=== PATIENT | male | born 1980 | race Caucasian/White ===

== ENCOUNTER 2016-05-31 04:38 | Emergency (ER) | payer MEDICAID ==
[2016-05-31] MEDS ORDERED: ALBUTEROL SULFATE/IPRATROPIUM 3 ML NEBU IH ONE ×2 (04:42→04:46)
[2016-05-31] MEDS ORDERED: METHYLPREDNISOLONE SOD SUCC/PF 125 MG/2 ML VIAL ONE (04:59)
[2016-05-31] MEDS ORDERED: METHYLPREDNISOLONE SOD SUCC/PF 40 MG/ML VIAL IM ONE (05:00)
--- NOTE | 2016-05-31 05:10 | ERNOTE ---
Dyspnea - General Presenting Symptoms: shortness of breath, wheezing Time Seen by Provider: 05/31/16 04:59 Source: patient Exam Limitations: no limitations - Immun/Allergies/Home Medications Immunizations: IMMUNIZATION HX Immunizations Up to Date No History of Influenza Vaccine No Hx Pneumococcal Vaccination No Allergies/Adverse Reactions: Allergies Penicillins Allergy (Verified 04/04/16 13:12) Home Medications: HOME MEDICATIONS Albuterol Sulfate [Albuterol Sulfate 2.5 MG/0.5ML] 1 vial IH Q4H PRN 04/04/16 [ Last Taken Unknown] Albuterol Sulfate [Ventolin HFA] 2 puff IH Q6H #1 inhaler 04/04/16 [Last Taken Unknown] Albuterol Sulfate [Ventolin Hfa] 2 puff IH Q4H PRN 04/04/16 [Last Taken Unknown] Tiotropium Sullivan [Spiriva] 1 cap IH DAILY 04/04/16 [Last Taken Unknown] Azithromycin [Zithromax] 250 mg PO DAILY #6 tablet 05/31/16 [Last Taken Unknown] Methylprednisolone [Medrol Dosepak] 4 mg PO DAILY #21 tab.ds.pk 05/31/16 [Last Taken Unknown] - History of Present Illness Narrative: Pt states he began to have shortness of breath last evening. Throughout the night he continued to get worse. Severity: severe Treatment PREPARATOR: by patient, albuterol - pt states he has taken around 40 nebulized treatments in the past 12 hours. Initiating event: Reports: unknown Frequency of episodes: Reports: frequent episodes, chronic episodes Modifying Factors - (Improves): Reports: oxygen Modifying Factors (Worsens): Reports: activity Associated Symptoms-Dyspnea: Reports: cough, wheezing. Denies: fever/chills, chest pain/discomfort, ankle/leg swelling Prior Treatment: Reports: previous episodes - Pt states he has had multiple ER visits but has never had to be admitted Review of Systems - Review of Systems Constitutional: Present: fatigue. Absent: recent illness EYE: Present: no symptoms reported ENT: Present: no symptoms reported Respiratory: Present: See HPI Cardiology: Absent: chest pain, syncope Gastrointestinal/Abdominal: Absent: nausea, vomiting Genitourinary: Present: no symptoms reported Musculoskeletal: Present: no symptoms reported Skin: Present: no symptoms reported Neurological: Present: no symptoms reported Endocrine: Present: no symptoms reported Hematologic/Lymphatic: Present: no symptoms reported Psych: Present: no symptoms reported - Patient's Past Medical History Patient History - Medical: No pertinent hx Patient History - Cardiac/Respiratory: COPD Patient History - Cancer: No Hx of Cancer Patient History - Surgical Procedures: Ear Tubes - Social History Living Situations: home Smoking Status: Former smoker Have you smoked in the past 12 months: Yes Alcohol Use: none Drug Use: none Physical Exam - Physical Exam General Appearance: Present: wd/wn, alert, moderate distress Eye Exam: Normal inspection: bilateral, PERRL: bilateral Ears, Nose, Throat: Present: normal ENT inspection, hearing grossly normal Neck: Present: normal inspection, nontender Respiratory: Present: expiration (prolonged), wheezing - inspiratory and expiratory, fair air movement Cardiovascular/Chest: Present: tachycardia - distant cardiac sounds Extremity Exam: Present: normal inspection, non-tender Neurological Exam: Present: alert, oriented, normal mood/affect, no motor/ sensory deficits Skin Exam: Present: normal color, warm/dry Lymphatic Exam: Present: no adenopathy ED Progress - Results and Orders Patient's Lab Results:: I have reviewed the patient's lab results. Results and Orders: Laboratory Tests 05/31/16 05:25 WBC 10.5 Hgb 16.5 Hct 52.4 H Plt Count 54 L - Vital Signs Patient's Vital Signs:: I have reviewed the patient's vital signs. Vital Signs: Vital Signs 05/31/16 05/31/16 04:41 04:48 Temperature 34.8 C L Pulse Rate 113 H 113 H Respiratory 26 H 26 H Rate Blood Pressure 159/82 O2 Sat by Pulse 83 L 89 L Oximetry - Progress/Reassessment Chief Complaint: Dyspnea Progress:: Improved - discussed the possibility of admission as his SaO2 remained 87-88 when on RA. Pt does not want to stay but agrees to return if he gets worse Departure Clinical Impression: Acute exacerbation of chronic obstructive airways disease - Departure Disposition: Home Follow Up Needed Condition: Fair Instructions: Chronic Obstructive Pulmonary Disease Exacerbation, [id number] Additional Instructions: See your pulmonary doctor if not improving Prescriptions: Azithromycin [Zithromax] 250 mg PO DAILY #6 tablet Methylprednisolone [Medrol Dosepak] 4 mg PO DAILY #21 tab.ds.pk
[2016-05-31 05:40] LABS: Hematocrit 52.4 % (42.0-52.0); Hemoglobin 16.5 gm/dL (13.5-18.0); Mean Cell Volume 96.7 fl (78-100); Mean Corpuscular Hemoglobin 30.4 pg (27-31); Mean Corpuscular Hgb Conc 31.5 g/dl (32-36); Mean Platelet Volume 9.8 fl (6.0-9.5); Platelet Count 54 K/mm3 (150-450); Red Blood Count 5.42 M/mm3 (4.7-6.0); Red Cell Distribution Width 15.1 % (11.5-14.0); White Blood Count 10.5 K/mm3 (4.0-10.5)
[2016-05-31 05:50] LABS: Total Cells Counted 100
[2016-05-31] MEDS ORDERED: ACETAMINOPHEN 500 MG TABLET PO ONE (05:52)
[2016-05-31 05:57] LABS: Eosinophil 4 % (0-3); Lymphocyte 37 % (20-51); Monocyte 13 % (0-9); Neutrophil 46 % (42-75); Neutrophil # 4.8 K/mm3 (1.3-6.0); Platelet Estimate Decreased (NORMAL); RBC Morphology Normal (NORMAL)
[2016-05-31 06:12] VITALS: BP 143/79
== END 2016-05-31 06:22 | disposition home or self-care (01) ==
LOC: ER 04:38
DX: J44.1 Chronic obstructive pulmonary disease with (acute) exacerbation (principal); Z87.891 Personal history of nicotine dependence

== ENCOUNTER 2016-08-02 22:48 | Emergency (ER) | payer MEDICAID ==
[2016-08-02] MEDS ORDERED: ORPHENADRINE CITRATE 30 MG/ML VIAL IM ONE (23:53)
[2016-08-02] MEDS ORDERED: KETOROLAC TROMETHAMINE 60 MG/2 ML VIAL IM ONE ×2 (23:53→23:56)
--- OUTSIDE RECORDS SUMMARY | 2016-08-02 23:53 | XMS REPORT | Continuity of Care Document ---
:1980 Author Organization [facility] ([facility]) Address [address] [place] [address] Phone [phone] Care Team Providers Name Role Phone Edwin Alexander Primary Care Provider [phone] Source Comments This disclosure is being made pursuant to the Care Everywhere program, applicable federal and state laws, and may not contain all informaitonavailable regarding this patient.[facility] ([facility]) Active Allergies and Adverse Reactions Allergen Noted Date Severity Reactions Comments Penicillin 03/23/2015 Unknown Current Medications Prescription Sig. Disp. Refills Start Date End Date Status albuterol 90 Use 2 Puffs by Active mcg/Actuation inhaler inhalation every 6 hours as needed albuterol 2.5 mg/3 mL Use 3 mL by Active inhalation solution inhalation every 4 hours as needed etodolac 400 mg 0 06/10/2015 Active tablet HYDROcodone-acetamino Take 1 tablet by 30 tablet 0 07/02/2015 Active phen 5-325 mg per mouth every 4 hours tablet as needed for Pain DO NOT EXCEED 3,000 MG ACETAMINOPHEN PER DAY FROM ALL SOURCES. ibuprofen 800 mg Take 1 tablet (800 20 tablet 0 07/02/2015 Active tablet mg total) by mouth every 6 hours as needed for Pain DO NOT EXCEED 3,200 MG IBUPROFEN PER DAY FROM ALL SOURCES. chlorhexidine 0.12 % Rinse with 10 ML 473 mL 0 07/02/2015 Active oral rinse for 30 seconds twice daily for 10 days. Swish and spit out excess. Nothing by mouth for 30 minutes.. pseudoephedrine 60 mg Take 1 tablet (60 28 tablet 0 07/02/2015 Active tablet mg total) by mouth every 6 hours as needed for Congestion. 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 Pulse 97 07/02/2015 3:41 PM ELECT[employer] POWER ENGINEER Temperature 36.8 C (98.2 F) 07/02/2015 3:41 PM ELECTRICAL POWER ENGINEER Respiratory Rate - - Height 1.854 m (6' 1") 03/23/2015 3:00 PM ELECTRICAL POWER ENGINEER Weight 135 kg (297 lb 9.9 oz) 03/23/2015 3:00 PM ELECTRICAL POWER ENGINEER Body Mass Index 39.27 03/23/2015 3:00 PM ELECTRICAL POWER ENGINEER Oxygen Saturation 97% 07/02/2015 3:41 PM ELECTRICAL POWER ENGINEER Plan of Care Health Maintenance Due Date Last Done Comments Hepatitis B Vaccine (1 of 3 - Primary Series) 1980 Tdap Vaccine 1989 Lipid Disorder Screening 1996 MMR Vaccine 1996 Td Vaccine 1996 Pneumococcal Vaccine (1 of 1 - PPSV23) 1997 Influenza Vaccine: Seasonal (#1) 12/07/2015 Results from Last 3 Months Not on file
--- NOTE | 2016-08-02 23:54 | ERNOTE ---
Back Pain ER HPI Presenting Symptoms: injury/pain to back - from coughing Time Seen by Provider: 08/02/16 23:47 Source: patient, family Exam Limitations: no limitations Immunizations: IMMUNIZATION HX Immunizations Up to Date Yes History of Influenza Vaccine No Hx Pneumococcal Vaccination No Allergies/Adverse Reactions: Allergies Penicillins Allergy (Verified 04/04/16 13:12) Home Medications: HOME MEDICATIONS Albuterol Sulfate [Albuterol Sulfate 2.5 MG/0.5ML] 1 vial IH Q4H PRN 04/04/16 [ Last Taken Unknown] Albuterol Sulfate [Ventolin HFA] 2 puff IH Q6H #1 inhaler 04/04/16 [Last Taken Unknown] Albuterol Sulfate [Ventolin Hfa] 2 puff IH Q4H PRN 04/04/16 [Last Taken Unknown] Tiotropium Chad[place] [Spiriva] 1 cap IH DAILY 04/04/16 [Last Taken Unknown] Azithromycin [Zithromax] 250 mg PO DAILY #4 tablet 08/03/16 [Last Taken Unknown] Cefuroxime Axetil [Ceftin] 500 mg PO BID #20 tab 08/03/16 [Last Taken Unknown] Cyclobenzaprine HCl [Flexeril] 10 mg PO TID PRN #30 tab 08/03/16 [Last Taken Unknown] Narrative: Pt states that for the past couple of days he has been coughing and that the coughing is causing his back to spasm. He is most worried about his back but his father, who came with him, is more concerned about his cough Timing: Reports: constant, getting worse Quality/Severity: Reports: moderate, severe, cramping Location of pain: Reports: mid back Activities at Onset: Reports: other - coughing Review of Systems - Review of Systems Constitutional: Present: recent illness EYE: Present: no symptoms reported ENT: Present: no symptoms reported Respiratory: Present: cough, wheezing Cardiology: Absent: chest pain Gastrointestinal/Abdominal: Present: no symptoms reported Genitourinary: Present: no symptoms reported Musculoskeletal: Present: See HPI Skin: Present: no symptoms reported Neurological: Present: no symptoms reported Endocrine: Present: no symptoms reported Hematologic/Lymphatic: Present: no symptoms reported Psych: Present: no symptoms reported - Patient's Past Medical History Patient History - Medical: No pertinent hx Patient History - Cardiac/Respiratory: Asthma, Bronchitis, COPD, CPAP/BiPAP Home Use Patient History - Cancer: No Hx of Cancer Patient History - Surgical Procedures: Ear Tubes Patient History - Other: None - Social History Living Situations: home Psych History: No pertinent hx Smoking Status: Current some day smoker Patient requests Smoking Cessation Consult: No Initiate information on Smoking Cessation: No Alcohol Use: none Drug Use: none - Immunizations Immunizations Up to Date: Yes Hx Pneumococcal Vaccination: No History of Influenza Vaccine: No Physical Exam - Physical Exam General Appearance: Present: wd/wn, alert, no apparent distress Eye Exam: Normal inspection: bilateral Ears, Nose, Throat: Present: normal ENT inspection Neck: Present: normal inspection, nontender Respiratory: Present: no respiratory distress, no accessory muscle use, chest nontender, wheezing - occasional expiratory wheeze Cardiovascular/Chest: Present: no murmur, normal peripheral pulses, tachycardia Back Exam: Present: no vertebral tenderness, muscle spasm - lower thoracics and upper lumbar Extremity Exam: Present: normal inspection, no edema Neurological Exam: Present: alert, oriented, normal mood/affect Skin Exam: Present: normal color, warm/dry Lymphatic Exam: Present: no adenopathy ED Progress - Results and Orders Patient's Lab Results:: I have reviewed the patient's lab results. Results and Orders: Laboratory Tests 08/03/16 00:16 WBC 38.6 H Hgb 15.4 Hct 45.7 Plt Count 206 Neutrophils % (Manual) 91 H - Vital Signs Vital Signs: Vital Signs 08/02/16 22:55 Temperature 37.9 C H Pulse Rate 120 H Respiratory 20 Rate Blood Pressure 120/59 O2 Sat by Pulse 91 Oximetry - X-Ray X-Ray #1 X-Ray: chest Interpretation: Interp. by me X-ray Comments: comparison 05/24: chronic scarring bilateral bases. small possible LLL infiltrate in the area of scaring - Progress/Reassessment Chief Complaint: Back Pain Progress:: Improved Progress Note-Subjective: 08/03/16 01:46 back pain is much improved Departure Clinical Impression: Pneumonia Qualifiers: Pneumonia type: due to unspecified organism Laterality: left Lung location: lower lobe of lung Qualified Code(s): J18.1 - Lobar pneumonia, unspecified organism - Departure Disposition: Home Follow Up Needed Condition: Good Instructions: Community-Acquired Pneumonia, Adult, [id number], Leukocytosis Additional Instructions: Return to ER if you are getting worse. See your regular doctor for follow up blood work in 7-10 days even if you are feeling better Prescriptions: Azithromycin [Zithromax] 250 mg PO DAILY #4 tablet Cefuroxime Axetil [Ceftin] 500 mg PO BID #20 tab Cyclobenzaprine HCl [Flexeril] 10 mg PO TID PRN #30 tab PRN Reason: MUSCLE SPASMS
[2016-08-02] MEDS ORDERED: ORPHENADRINE CITRATE 30 MG/ML VIAL ONE (23:56)
[2016-08-03 00:29] LABS: Hematocrit 45.7 % (42.0-52.0); Hemoglobin 15.4 gm/dL (13.5-18.0); Mean Cell Volume 90.1 fl (78-100); Mean Corpuscular Hemoglobin 30.4 pg (27-31); Mean Corpuscular Hgb Conc 33.7 g/dl (32-36); Mean Platelet Volume 8.4 fl (6.0-9.5); Platelet Count 206 K/mm3 (150-450); Red Blood Count 5.07 M/mm3 (4.7-6.0); Red Cell Distribution Width 14.8 % (11.5-14.0); White Blood Count 38.6 K/mm3 (4.0-10.5)
[2016-08-03 00:34] LABS: Total Cells Counted 100
[2016-08-03 00:43] LABS: Band 5 % (0-2.0); Lymphocyte 2 % (20-51); Monocyte 2 % (0-9); Neutrophil 91 % (42-75); Neutrophil # 35.1 K/mm3 (1.3-6.0)
[2016-08-03 00:45] LABS: Polychromasia Trace; Toxic Granulation 1+
[2016-08-03 00:46] LABS: Dohle Bodies 2+; Platelet Estimate Normal (NORMAL); RBC Morphology Normal (NORMAL)
[2016-08-03 01:31] VITALS: BP 104/60
[2016-08-03] MEDS ORDERED: AZITHROMYCIN 250 MG TABLET PO ONE (01:34)
[2016-08-03] MEDS ORDERED: AZITHROMYCIN 250 MG TABLET ONE ×2 (01:37→01:42)
== END 2016-08-03 01:52 | disposition home or self-care (01) ==
LOC: ER 22:48
DX: J18.1 Lobar pneumonia, unspecified organism (principal); Z72.0 Tobacco use; J44.9 Chronic obstructive pulmonary disease, unspecified; J45.909 Unspecified asthma, uncomplicated

== ENCOUNTER 2017-01-08 18:51 | Observation (INO) | payer MEDICAID ==
[2017-01-08] MEDS ORDERED: ALBUTEROL SULFATE/IPRATROPIUM 3 ML NEBU IH ONE ×5 (19:43→21:03)
[2017-01-08] MEDS ORDERED: METHYLPREDNISOLONE SOD SUCC/PF 125 MG/2 ML VIAL IV ONE (19:45)
[2017-01-08] MEDS ORDERED: METHYLPREDNISOLONE SOD SUCC/PF 125 MG/2 ML VIAL ONE (19:46)
--- NOTE | 2017-01-08 19:54 | ERNOTE ---
<Fredi Zhang - Last Filed: 01/08/17 19:46> Dyspnea - Date Date of Service: 01/08/17 - General Presenting Symptoms: shortness of breath, difficulty of breathing Time Seen by Provider: 01/08/17 19:46 Source: patient, family Exam Limitations: no limitations - Immun/Allergies/Home Medications Immunizations: IMMUNIZATION HX Immunizations Up to Date Yes History of Influenza Vaccine No Hx Pneumococcal Vaccination No Allergies/Adverse Reactions: Allergies Penicillins Allergy (Verified 01/08/17 19:34) Home Medications: HOME MEDICATIONS Albuterol Sulfate [Albuterol Sulfate 2.5 MG/0.5ML] 1 vial IH Q4H PRN 04/04/16 [ Last Taken Unknown] Albuterol Sulfate [Ventolin HFA] 2 puff IH Q6H #1 inhaler 04/04/16 [Last Taken Unknown] Albuterol Sulfate [Ventolin Hfa] 2 puff IH Q4H PRN 04/04/16 [Last Taken Unknown] Tiotropium [place] [Spiriva] 1 cap IH DAILY 04/04/16 [Last Taken Unknown] Budesonide/Formoterol Fumarate [Symbicort 80-4.5 Mcg Inhaler] 1 puff IH DAILY [Last Taken Unknown] - History of Present Illness Narrative: patient presents with c/o sob, hx of copd Severity: severe 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, 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 Initiating event: Reports: upper resp illness Frequency of episodes: Reports: frequent episodes Modifying Factors - (Improves): Reports: nothing Modifying Factors (Worsens): Reports: activity Associated Symptoms-Dyspnea: Reports: fever/chills, dizziness, lightheadedness Prior Treatment: Reports: recently seen, treated by physician Review of Systems - Review of Systems Constitutional: Present: See HPI, fatigue, malaise EYE: Present: no symptoms reported ENT: Present: no symptoms reported Respiratory: Present: See HPI, shortness of breath, wheezing Cardiology: Present: no symptoms reported, See HPI Gastrointestinal/Abdominal: Present: no symptoms reported Musculoskeletal: Present: no symptoms reported Skin: Present: no symptoms reported Neurological: Present: no symptoms reported Endocrine: Present: no symptoms reported Hematologic/Lymphatic: Present: no symptoms reported Psych: Present: no symptoms reported All Other Systems: All systems neg except as marked - Patient's Past Medical History Patient History - Medical: No pertinent hx Patient History - Cardiac/Respiratory: Asthma, Bronchitis, COPD, CPAP/BiPAP Home Use Patient History - Cancer: No Hx of Cancer Patient History - Surgical Procedures: Ear Tubes Patient History - Other: None - Family History Family History:: no untoward family reactions to anesthesia, no family history of clotting disorders - Social History Living Situations: home Psych History: No pertinent hx Smoking Status: Current some day smoker Have you smoked in the past 12 months: No Do you dip or chew tobacco: No Patient requests Smoking Cessation Consult: No Initiate information on Smoking Cessation: No Alcohol Use: none Drug Use: none - Immunizations Immunizations Up to Date: Yes Hx Pneumococcal Vaccination: No History of Influenza Vaccine: No Physical Exam - Physical Exam General Appearance: Present: no apparent distress, severe distress Head Exam: Present: normal inspection, no evidence of injury Eye Exam: Normal inspection: bilateral, PERRL: bilateral, EOMI: bilateral Ears, Nose, Throat: Present: normal ENT inspection Neck: Present: normal inspection, nontender Respiratory: Present: respiratory distress, decreased breath sounds, crackles, rales, wheezing Cardiovascular/Chest: Present: regular rate, rhythm, no murmur, normal peripheral pulses Peripheral Pulses: N=norm/S=strong/W=weak/B=bound/A=absent: Carotid (R): Normal , Carotid (L): Normal, Radial (R): Normal, Radial (L): Normal, Femoral (R): Normal, Femoral (L): Normal, Dorsalis-pedis (R): Normal, Dorsalis-pedis (L): Normal Gastrointestinal/Abdominal: Present: normal bowel sounds, nontender, nondistended, soft, no organomegaly Back Exam: Present: normal inspection, normal range of motion, no CVA tenderness , no vertebral tenderness Extremity Exam: Present: normal inspection, non-tender, normal range of motion, no edema Neurological Exam: Present: alert, oriented, normal mood/affect, no motor/ sensory deficits DTR: N=norm/NB=norm/brisk/A=abs/DD=dull/dimin/HC=hyperactive: Bicep (R): Normal , Bicep (L): Normal, Tricep (R): Normal, Tricep (L): Normal, Knee (R): Normal, Knee (L): Normal, Ankle (R): Normal, Ankle (L): Normal Skin Exam: Present: normal color, warm/dry ED Progress - Vital Signs Vital Signs: Vital Signs 01/08/17 19:35 Temperature 37.2 C Pulse Rate 110 H Respiratory 24 H Rate Blood Pressure 159/82 O2 Sat by Pulse 85 L Oximetry - Progress/Reassessment Chief Complaint: Dyspnea Departure Clinical Impression: COPD exacerbation, Hypoxia - Departure Disposition: [facility] <Romel Lopez - Last Filed: 01/08/17 21:12> Dyspnea - Immun/Allergies/Home Medications Immunizations: IMMUNIZATION HX Immunizations Up to Date Yes History of Influenza Vaccine No Hx Pneumococcal Vaccination No ED Progress - Vital Signs Vital Signs: Vital Signs 01/08/17 01/08/17 01/08/17 19:35 19:45 19:49 Temperature 37.2 C Pulse Rate 110 H 113 H 106 H Respiratory 24 H 22 H 17 Rate Blood Pressure 159/82 O2 Sat by Pulse 85 L 84 L 94 Oximetry 01/08/17 01/08/17 19:59 20:00 Temperature Pulse Rate 105 H 104 H Respiratory 17 Rate Blood Pressure 142/76 O2 Sat by Pulse 94 Oximetry Plan - Plan Plan: I assumed care from Dr. Zhang at 8 PM. I have added a d-dimer. 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 No acute infiltrates are noted. I have reevaluated the patient. On room air he still drops below 90%. He is still profoundly dyspneic. His lungs have very very poor air exchange. Diffuse wheezing. Frequent cough. I think pulmonary embolism is much less likely, this sounds like asthma exacerbation or COPD exacerbation. Because he is going to be admitted to the hospital he will be started on a quinolone antibiotic, Levaquin. These have been shown to decrease the rate of 3 admission the patient's with moderate to severe COPD requiring hospitalization. The patient understands that he is going to need to stay in the hospital overnight until he can get the steroids work and get his breathing tubes opened up. He is okay with this. I have spoken with Dr. Engel. We will admit to the hospital. Departure - Critical Care Total Time (mins): 30
[2017-01-08 19:59] LABS: Hematocrit 51.4 % (42.0-52.0); Mean Cell Volume 90.7 fl (78-100); Mean Corpuscular Hgb Conc 33.1 g/dl (32-36); Mean Platelet Volume 8.6 fl (6.0-9.5); Neutrophil % 57.1 % (42-75.0); Platelet Count 262 K/mm3 (150-450); Red Blood Count 5.67 M/mm3 (4.7-6.0); Red Cell Distribution Width 16.8 % (11.5-14.0); White Blood Count 12.3 K/mm3 (4.0-10.5)
[2017-01-08 20:18] LABS: ALT 107 U/L (19-67); AST 46 U/L (0-48); Albumin * 3.7 gm/dl (3.4-5.0); Alkaline Phosphatase * 105 U/L (50-170); Anion Gap 10.5 mmol/L (6.8-13.8); BNP * 95 pg/mL (5-140); BUN/Creatinine Ratio 11.5 (9.0-21.6); Bilirubin, Total 0.4 mg/dL (0.0-1.1); Blood Urea Nitrogen 11 mg/dL (6-23); Ca. Corrected For Albumin 8.7 mg/dL (8.4-10.2); Calcium * 8.8 mg/dL (7.9-10.9); Carbon Dioxide 30.9 mmol/L (24-32.6); Chloride 103 mmol/L (97-106); Glucose * 132 mg/dL (70-110); Potassium 4.4 mmol/L (3.4-4.6); Sodium 140 mmol/L (132-142); Total Protein 7.9 gm/dL (6.2-8.2)
[2017-01-08 20:19] LABS: Troponin I Less than 0.017 ng/ml (0.00-0.10)
[2017-01-08] MEDS ORDERED: MAGNESIUM SULFATE IN WATER 50 ML IV ONE (20:35)
[2017-01-08] MEDS ORDERED: LEVOFLOXACIN/D5W 500 MG/100 ML BAG IV SCH (20:45)
[2017-01-08] MEDS: ALBUTEROL SULFATE/IPRATROPIUM 3 ML NEBU IH SCH ×5 (20:45→22:42)
[2017-01-08] MEDS: FAMOTIDINE 20 MG TABLET PO SCH (22:15)
[2017-01-08] MEDS ORDERED: ALBUTEROL SULFATE 2.5 MG/0.5 ML VIAL.NEB IH PRN (22:19)
[2017-01-08] MEDS ORDERED: ALBUTEROL SULFATE 200 PUFF INHALER IH PRN (22:19)
[2017-01-08] MEDS ORDERED: METHYLPREDNISOLONE SOD SUCC 60 MG in WATER FOR INJ.,BACTERIOSTATIC 0 ML IV SCH (22:30)
--- NOTE | 2017-01-08 22:31 | HP ---
Chief Complaint - Chief Complaint Date of Service: 01/08/17 Time of Service: 21:56 Chief Complaint: Dyspena, non productive cough History of Present Illness: 36 years old male adm to the hospital from ER with reports of wheezing and shortness of breath at rest and exacerbated with activity. pt stated a week ago he had a cold and since then he began to get increased shortness of breath than usual. He has used his inhalers, cpap and have been taking his maintenance medications without relief. Associated symptom is a cough, he denies fever, chills, rigors and palpation. PMH significant for sleep apnea, morbid obesity BMI (41.1kg) ex-smoker, URI and COPD. On adm to ER spo2 85 % on room air, On 2l nasal cannula spo2 84%, It improved while on 4L nasal cannula to spo2 94%. Neb treatment and IV antibiotics were initiated, D- Dimer negative. Plan of care discussed with pt he verbalized understanding and agrees. - Patient's Past Medical History Patient History - Medical: Liver Disease Patient History - Cardiac/Respiratory: Asthma, Bronchitis, COPD, CPAP/BiPAP Home Use Patient History - Cancer: No Hx of Cancer Patient History - Surgical Procedures: Ear Tubes, Other Patient History - Other: None - Family History Family History:: no untoward family reactions to anesthesia, no family history of clotting disorders - Family History Father Family History - Medical: No pertinent hx Mother Family History - Medical: No pertinent hx - Social History Living Situations: parents Psych History: No pertinent hx Smoking Status: Former smoker - quit less than a year Have you smoked in the past 12 months: Yes Do you dip or chew tobacco: Yes Patient requests Smoking Cessation Consult: No Initiate information on Smoking Cessation: No Alcohol Use: none Drug Use: none - Immunizations Immunizations Up to Date: Yes Hx Pneumococcal Vaccination: No History of Influenza Vaccine: No Review Of Systems (GEN) - Review of Systems Generalized/Overall Review: Present: No Symptoms Reported EENTM: Present: No Symptoms Reported Respiratory: Present: Cough, Shortness of Breath, Wheezing Cardiac: Present: No Symptoms Reported Abdominal: Present: No Symptoms Reported Genitourinary: Present: No Symptoms Reported Musculoskeletal: Present: No Symptoms Reported Neurological: Present: No Symptoms Reported Skin: Present: Bruising Endocrine: Present: No Symptoms Reported Allergies/Adverse Reactions: Allergies Allergy/AdvReac Type Severity Reaction Status Date / Time Penicillins Allergy Verified 01/08/17 19:34 Home Medications: HOME MEDICATIONS Albuterol Sulfate [Albuterol Sulfate 2.5 MG/0.5ML] 1 vial IH Q4H PRN 04/04/16 [ Last Taken Unknown] Albuterol Sulfate [Ventolin Hfa] 2 puff IH Q4H PRN 04/04/16 [Last Taken Unknown] Tiotropium [place] [Spiriva] 1 cap IH DAILY 04/04/16 [Last Taken Unknown] Budesonide/Formoterol Fumarate [Symbicort 80-4.5 Mcg Inhaler] 1 puff IH DAILY [Last Taken Unknown] Exam - Exam Vital Signs: Vital Signs - Last Taken Temp 36.4 C L 01/08/17 21:32 Pulse 104 H 01/08/17 21:33 Resp 16 01/08/17 21:33 BP 154/82 01/08/17 21:32 Pulse Ox 97 01/08/17 21:32 Constitutional: Present: Alert, Oriented x3, Cooperative, Well developed, Mild distress, Young, Morbidly obese ENT Exam: Present: normal ENT inspection Eye Exam: bilateral eye: normal inspection Neck: Present: full range of motion Back Exam: Present: normal inspection Breasts: Present: Exam deferred Respiratory: Present: chest non-tender, respiratory distress, decreased breath sounds, wheezing Cardiovascular/Chest: Present: normal peripheral pulses, regular rate, rhythm, no chest tenderness, no edema, no gallop, no murmur Peripheral Pulses: dorsalis-pedis (R): 3+, dorsalis-pedis (L): 3+ Abdomen: Present: Normal bowel sounds, soft, nontender, nondistended, obese /Rectal: Present: Exam deferred Extremity: Present: normal range of motion, non-tender, normal inspection, no pedal edema Skin Exam: Present: normal color, warm/dry, other - LLQ bruising Lymphatic: Present: no adenopathy Neurologic: Present: oriented x 3 Appearance: Present: appropriate appearance Eye contact: Present: cooperative, good eye contact Thoughts: Present: normal thought pattern Diagnostic Studies: Laboratory Results WBC 12.3 K/mm3 (4.0-10.5) H 01/08/17 19:50 RBC 5.67 M/mm3 (4.7-6.0) 01/08/17 19:50 Hgb 17.0 gm/dL (13.5-18.0) 01/08/17 19:50 Hct 51.4 % (42.0-52.0) 01/08/17 19:50 MCV 90.7 fl (78-100) 01/08/17 19:50 MCH 30.0 pg (27-31) 01/08/17 19:50 MCHC 33.1 g/dl (32-36) 01/08/17 19:50 RDW 16.8 % (11.5-14.0) H 01/08/17 19:50 Plt Count 262 K/mm3 (150-450) 01/08/17 19:50 MPV 8.6 fl (6.0-9.5) 01/08/17 19:50 Immature Gran % (Auto) 0.30 % (0.001-0.429) 01/08/17 19:50 Immature Gran # (Auto) 0.04 K/mm3 (0.000-0.0310) H 01/08/17 19:50 Neutrophils % 57.1 % (42-75.0) 01/08/17 19:50 Lymphocytes % 22.7 % (20-51) 01/08/17 19:50 Monocytes % 11.1 % (0.0-9) H 01/08/17 19:50 Eosinophils % 8.2 % (0.0-3.0) H 01/08/17 19:50 Basophils % 0.6 % (0.0-1.0) 01/08/17 19:50 Nucleated RBC % 0.0 k/mm3 (0-1) 01/08/17 19:50 Neutrophils # 7.0 K/mm3 (1.3-6.0) H 01/08/17 19:50 Lymphocytes # 2.8 k/mm3 (1.5-3.5) 01/08/17 19:50 Monocytes # 1.4 k/mm3 (0.0-1.0) H 01/08/17 19:50 Eosinophils # 1.0 k/mm3 (0.0-0.7) H 01/08/17 19:50 Absolute Basophils 0.1 k/mm3 (0.0-0.1) 01/08/17 19:50 D-Dimer 0.28 mg/L (0.19-0.49) 01/08/17 19:50 pCO2 56.5 mmHg (35.0-48.0) H 01/08/17 20:04 pO2 80.8 mmHg (83.0-108.0) L 01/08/17 20:04 HCO3 31.1 mmol/L (21.0-28.0) H 01/08/17 20:04 Total CO2 32.8 mmol/L (19.0-24.0) H 01/08/17 20:04 Base Excess 4.0 mmol/L (-2.0-3.0) H 01/08/17 20:04 ABG pH 7.36 (7.35-7.45) 01/08/17 20:04 ABG O2 Sat (Measured) 95.3 % (94.0-98.0) 01/08/17 20:04 Sodium 140 mmol/L (132-142) 01/08/17 19:50 Plasma Sodium 141 mmol/L (130-142) 01/08/17 19:50 Potassium 4.4 mmol/L (3.4-4.6) 01/08/17 19:50 Chloride 103 mmol/L (97-106) 01/08/17 19:50 Carbon Dioxide 30.9 mmol/L (24-32.6) 01/08/17 19:50 Anion Gap 10.5 mmol/L (6.8-13.8) 01/08/17 19:50 BUN 11 mg/dL (6-23) 01/08/17 19:50 Creatinine 0.96 mg/dL (0.4-1.4) 01/08/17 19:50 Est GFR (Non-Af Amer) 93 mL/min (60-130) 01/08/17 19:50 BUN/Creatinine Ratio 11.5 (9.0-21.6) 01/08/17 19:50 Random Glucose 132 mg/dL (70-110) H 01/08/17 19:50 Calcium 8.8 mg/dL (7.9-10.9) 01/08/17 19:50 Calcium Adj for Albumin 8.7 mg/dL (8.4-10.2) 01/08/17 19:50 Total Bilirubin 0.4 mg/dL (0.0-1.1) 01/08/17 19:50 AST 46 U/L (0-48) 01/08/17 19:50 ALT 107 U/L (19-67) H 01/08/17 19:50 Alkaline Phosphatase 105 U/L (50-170) 01/08/17 19:50 Troponin I Less than 0.017 ng/ml (0.00-0.10) 01/08/17 19:50 B-Natriuretic Peptide 95 pg/mL (5-140) 01/08/17 19:50 Total Protein 7.9 gm/dL (6.2-8.2) 01/08/17 19:50 Albumin 3.7 gm/dl (3.4-5.0) 01/08/17 19:50 Assessment/Plan - Narrative Narrative: Acute on chronic COPD exacerbation- likely due to URI pt stated he had a cold for several days and his shortness of breath got worst despite treatment. On adm WBC 12.3 possible due to stress response, will potentially increased after steriod use. IV steriods and IV antbx given in ER, will continue with neb treatment, inhaled and iv steriods. Repeat ABG in AM D-Dimer 0.28 Continue with with Cpap Low flow oxygen 4L to keep O2 sat > 90% Plan to wean off oxygen and perform Oxygen walk test upon discharge. CXR: noted Blood culture and sputum culture pending Hypoxia On adm spo2 85% on room air---> 2L oxygen spo2 84%----> 4L sp2 93% Continue to monitor and wean oxygen Pt may need oxygen upon discharge. Plan for oxygen walk test before discharge. Sleep Apnea continue with Cpap Obesity Diet and exercise, see PCP for further management. DVT ppx: SCD and ambulate GI ppx: Pepcid Code status :Station Inspector 30 minutes - Assessment/Plan (1) Hypoxia Problem: Acute (2) COPD exacerbation Problem: Acute (3) Sleep apnea in adult Problem: Chronic
[2017-01-09] MEDS: METHYLPREDNISOLONE SOD SUCC 60 MG in WATER FOR INJ.,BACTERIOSTATIC 0 ML IV SCH ×2 (02:06→07:11)
[2017-01-09] MEDS: ALBUTEROL SULFATE/IPRATROPIUM 3 ML NEBU IH SCH ×2 (02:09→06:21)
[2017-01-09 06:49] VITALS: BP 127/74
[2017-01-09] MEDS ORDERED: TIOTROPIUM BROMIDE 5 CAP INHALER IH SCH (09:00)
[2017-01-09] MEDS ORDERED: FLUTICASONE/SALMETEROL 14 PUFF DISK.W.DEV IH SCH ×2 (09:00)
--- NOTE | 2017-01-09 09:05 | DS ---
(1) Hypoxia Problem: Acute (2) Sleep apnea in adult Problem: Chronic (3) Acute exacerbation of chronic obstructive airways disease Problem: Acute Description of Stay: Pt admitted for respiratory distress and failure due to COPD exacerbation. he initially was requiring 3 L O2 to keep sats in the low 90's, definitely needing CPAP when sleeping given his LUCIA. This am he states he felt much better than last PM when he was admitted and would like to go home as soon as he can. His O2 levels off oxygen this am remained in the low 90's on RA. His lung exam showed significant EEW martin, R>L, with breathlessness when speaking., but was on O2 at the time I saw him. D-dimer was done to r/o PE and this was normal and he had no cords or LE edema. Procedures Performed: none Discharge Disposition: Home self care Disposition: Home self-care Condition: Fair Discharge Activity: Activity as tolerated Discharge Diet: General/regular food Referrals: Emerald Serna, DYLLAN [Primary Care Provider] - 01/13/17 Prescriptions (Any new or edited meds): Levofloxacin [Levaquin] 500 mg PO DAILY #10 tab predniSONE [Prednisone] See Taper PO DAILY #42 [email or web address] Complete Home Medications List: Complete Home Medication List: Albuterol Sulfate [Albuterol Sulfate 2.5 MG/0.5ML] 1 vial IH Q4H PRN 04/04/16 Albuterol Sulfate [Ventolin Hfa] 2 puff IH Q4H PRN 04/04/16 Tiotropium [place] [Spiriva] 1 cap IH DAILY 04/04/16 Budesonide/Formoterol Fumarate [Symbicort 80-4.5 Mcg Inhaler] 1 puff IH DAILY Levofloxacin [Levaquin] 500 mg PO DAILY #10 tab 01/09/17 guaiFENesin [Mucinex] 600 mg PO BID tablet.sa 01/09/17 predniSONE [Prednisone] See Taper PO DAILY #42 [email or web address] 01/09/17
[2017-01-09] MEDS: FAMOTIDINE 20 MG TABLET PO SCH (09:18)
[2017-01-09] MEDS ORDERED: FLU VACC QS2017-18(6MOS UP)/PF 60 MCG/0.5 ML SYRINGE IM ONE (11:00)
== END 2017-01-09 10:39 | disposition home or self-care (01) ==
LOC: ER 18:51 → MS 20:50
PROVIDERS: ADMIT Nurse Practitioner; ATTEND Family Medicine
PROC: 4A033R1 Measurement of Arterial Saturation, Peripheral, Percutaneous Approach (ICD-10-PCS; principal; 2017-01-08)
DX: J96.01 Acute respiratory failure with hypoxia (principal); G47.33 Obstructive sleep apnea (adult) (pediatric); J44.1 Chronic obstructive pulmonary disease with (acute) exacerbation; Z87.891 Personal history of nicotine dependence; E66.01 Morbid (severe) obesity due to excess calories; Z68.41 Body mass index [BMI] 40.0-44.9, adult
CPT/HCPCS: 36600; 71020; 80053; 82803; 83880; 84484; 85025; 85379; 87040; 93005; 94640; 94660; 94760; 96365; 96375; 96376; 99291; G0378